=== PATIENT | male | born 1980 | race Caucasian/White ===

== ENCOUNTER 2020-01-10 16:32 | Outpatient (CLI) | payer OTHER | END 2020-01-10 16:33 | disposition home or self-care (01) | LOC: CTENTCT 16:32 | PROVIDERS: ATTEND Specialist | DX: J32.9 Chronic sinusitis, unspecified (principal) | CPT/HCPCS: 70486 ==

== ENCOUNTER 2020-04-24 18:00 | Outpatient (CLI) | payer OTHER | END 2020-04-24 18:01 | disposition home or self-care (01) | LOC: SLEEPLAB 18:00 | PROVIDERS: ATTEND Family Medicine | DX: G47.33 Obstructive sleep apnea (adult) (pediatric) (principal); R53.83 Other fatigue; R06.83 Snoring; K21.9 Gastro-esophageal reflux disease without esophagitis; G47.00 Insomnia, unspecified; F32.9 Major depressive disorder, single episode, unspecified; E66.9 Obesity, unspecified; Z68.42 Body mass index [BMI] 45.0-49.9, adult | CPT/HCPCS: 95806 ==

== ENCOUNTER 2022-06-18 16:12 | Outpatient (CLI) | payer BC | END 2022-06-18 16:13 | disposition home or self-care (01) | LOC: SCSRAD 16:12 | PROVIDERS: ATTEND Family Medicine | DX: R07.81 Pleurodynia (principal) | CPT/HCPCS: 71111 ==